=== PATIENT | female | born 1960 | race American Indian/Alaskan Native ===

== ENCOUNTER 2016-10-11 02:56 | Emergency (ER) | payer MEDICARE ==
[2016-10-11] MEDS ORDERED: ZOFRAN ODT PO ONE (03:48)
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
[2016-10-11] MEDS ORDERED: TORADOL IM ONE (09:12)
[2016-10-11 09:40] VITALS: BP 132/78
== END 2016-10-11 09:41 | disposition home or self-care (01) ==
LOC: ED 02:56
DX: M54.9 Dorsalgia, unspecified (principal)
CPT/HCPCS: 96372; 99282; J1885

== ENCOUNTER 2017-06-24 16:28 | Emergency (ER) | payer MEDICARE | END 2017-06-24 17:00 | disposition left against medical advice (07) | LOC: ED 16:28 | DX: Z53.21 Procedure and treatment not carried out due to patient leaving prior to being seen by health care provider (principal) ==

== ENCOUNTER 2018-07-18 10:10 | Outpatient (CLI) | payer MEDICARE ==
--- NOTE | 2018-07-18 13:43 | Fluoroscopy Report ---
FLUOROSCOPY BARIUM SWALLOW HISTORY: Dysphagia. COMPARISON: Upper GI series dated 10/25/12. FINDINGS: 91 fluoroscopic images were captured during this exam. Please note this exam was challenging because the patient refused to take in a large volume of the oral contrast. Deglutition appeared normal. No evidence for aspiration. A mildly obstructing cervical ring or web was identified near the level of C7. This appears to be mildly obstructing. After ingestion of the barium tablet, the tablet was stuck at the ring/web for a significant period of time before eventually passing. The patient experienced multiple episodes of gagging during this time. The thoracic esophagus appears normal caliber and mucosal pattern. Occasional tertiary contractions were identified suggesting mild esophagitis. A small sliding hiatal hernia was witnessed. Partial gastrectomy changes or gastric bypass changes are suspected. Please correlate with history. No reflux was witnessed during this exam. IMPRESSION: Cervical esophageal ring or web, mildly obstructing. See above. Mild esophagitis. Small hiatal hernia.
== END 2018-07-18 10:11 | disposition home or self-care (01) ==
LOC: FLUORO 10:10
PROVIDERS: ATTEND Nurse Practitioner
DX: K20.9 Esophagitis, unspecified (principal); K44.9 Diaphragmatic hernia without obstruction or gangrene; I10 Essential (primary) hypertension; J45.909 Unspecified asthma, uncomplicated; K21.9 Gastro-esophageal reflux disease without esophagitis; Z90.49 Acquired absence of other specified parts of digestive tract
CPT/HCPCS: 74220

== ENCOUNTER 2018-12-23 14:45 | Inpatient (IN) | payer MEDICARE ==
[2018-12-23] MEDS ORDERED: NACL 0.9% 500 ML 500 ML IV ONE (15:25)
--- NOTE | 2018-12-23 15:40 | Emergency Department Report ---
ED General Adult HPI - General Chief complaint: Altered Mental Status Stated complaint: POSSIBLE OD Time Seen by Provider: 12/23/18 15:21 Source: EMS Mode of arrival: Stretcher Limitations: Altered Mental Status - History of Present Illness Initial comments: 58 y.o. female with chronic pain disorder and asthma presents after family states that patient had a period of altered mental status. Family states the patient has a history of chronic pain in her back and knees and to pain medication. EMS stated that the pain medication looked to be old as the label was scratched off. Family stated that they believe the patient only took one of the tablets but they did not know the name of the tablet. Patient here is oriented to person place and time. Patient denies any shortness of breath. Patient denies any falls. patient denies any fever. Severity scale (0 -10): 0 - Related Data Home Medications Medication Instructions Recorded Confirmed Last Taken ALBUTEROL Inhaler (OR & NICU) 2 puff IH QID PRN 12/08/12 10/11/16 Unknown [ProAir HFA Inhaler] Gabapentin 600 mg PO TID 10/11/16 10/11/16 Unknown HYDROcodone/APAP 10-325 1 tab PO QID 10/11/16 10/11/16 Unknown NexIUM 40 mg PO DAILY 10/11/16 10/11/16 Unknown Roxicodone 15 mg PO QID 10/11/16 10/11/16 Unknown Previous Rx's Medication Instructions Recorded Last Taken Type OLANzapine ZYDIS [ZyPREXA Zydis] 2.5 mg PO Q8H PRN #15 tab.rapdis 10/19/15 Unknown Rx HYDROcodone/APAP 10-325 [[place] 1 each PO Q8HR PRN #10 tablet 10/11/16 Unknown Rx 10-325 mg TAB] Allergies Allergy/AdvReac Type Severity Reaction Status Date / Time morphine Allergy Itching Verified 12/08/12 09:37 ED Review of Systems ROS: Stated complaint: POSSIBLE OD Other details as noted in HPI Constitutional: denies: chills, fever Eyes: denies: eye pain, eye discharge, vision change ENT: denies: ear pain, throat pain Respiratory: denies: cough, shortness of breath, wheezing Cardiovascular: denies: chest pain, palpitations Endocrine: no symptoms reported Gastrointestinal: denies: abdominal pain, nausea, diarrhea Genitourinary: denies: urgency, dysuria, discharge Musculoskeletal: denies: back pain, joint swelling, arthralgia Skin: denies: rash, lesions Neurological: denies: headache, weakness, paresthesias Psychiatric: denies: anxiety, depression Hematological/Lymphatic: denies: easy bleeding, easy bruising ED Past Medical Hx - Past Medical History Previous Medical History?: Yes Hx Hypertension: Yes Hx GERD: Yes Hx Arthritis: Yes Hx Psychiatric Treatment: Yes (Depression) Hx Asthma: Yes Additional medical history: CHRONIC Pain, - Surgical History Past Surgical History?: Yes Hx Cholecystectomy: Yes - Social History Smoking Status: Never Smoker Substance Use Type: None - Medications Home Medications: Home Medications Medication Instructions Recorded Confirmed Last Taken Type ALBUTEROL Inhaler (OR & NICU) 2 puff IH QID PRN 12/08/12 10/11/16 Unknown History [ProAir HFA Inhaler] OLANzapine ZYDIS [ZyPREXA Zydis] 2.5 mg PO Q8H PRN #15 tab.rapdis 10/19/15 10/11/16 Unknown Rx Gabapentin 600 mg PO TID 10/11/16 10/11/16 Unknown History HYDROcodone/APAP 10-325 1 tab PO QID 10/11/16 10/11/16 Unknown History HYDROcodone/APAP 10-325 [[place] 1 each PO Q8HR PRN #10 tablet 10/11/16 Unknown Rx 10-325 mg TAB] NexIUM 40 mg PO DAILY 10/11/16 10/11/16 Unknown History Roxicodone 15 mg PO QID 10/11/16 10/11/16 Unknown History ED Physical Exam - General Limitations: Altered Mental Status General appearance: obese, other (awake; oriented to person place and time) - Head Head exam: Present: atraumatic, normocephalic - Eye Eye exam: Present: normal appearance - ENT ENT exam: Present: mucous membranes dry - Neck Neck exam: Present: normal inspection - Respiratory Respiratory exam: Present: normal lung sounds bilaterally. Absent: respiratory distress - Cardiovascular Cardiovascular Exam: Present: regular rate, normal rhythm. Absent: systolic murmur, diastolic murmur, rubs, gallop - GI/Abdominal GI/Abdominal exam: Present: soft, normal bowel sounds - Extremities Exam Extremities exam: Present: normal inspection - Back Exam Back exam: Present: normal inspection - Neurological Exam Neurological exam: Present: alert, oriented X3, CN II-XII intact. Absent: motor sensory deficit - Psychiatric Psychiatric exam: Present: normal affect, normal mood - Skin Skin exam: Present: warm, dry, intact, normal color. Absent: rash ED Course Vital Signs 12/23/18 12/23/18 12/23/18 15:10 15:30 16:01 Temperature 98.3 F Pulse Rate 104 H 104 H Respiratory 12 9 L Rate Blood Pressure 137/79 103/62 103/62 Blood Pressure 137/79 [Left] O2 Sat by Pulse 93 77 L 97 Oximetry 12/23/18 12/23/18 12/23/18 16:31 17:01 17:31 Temperature Pulse Rate 102 H 97 H 99 H Respiratory 13 10 L 8 L Rate Blood Pressure 103/62 103/62 103/62 Blood Pressure [Left] O2 Sat by Pulse 94 77 L 76 L Oximetry 12/23/18 12/23/18 12/23/18 17:56 18:00 18:31 Temperature Pulse Rate 88 99 H 96 H Respiratory 9 L 12 9 L Rate Blood Pressure 177/95 121/80 Blood Pressure 111/70 [Left] O2 Sat by Pulse 95 95 93 Oximetry 12/23/18 19:00 Temperature Pulse Rate 98 H Respiratory 10 L Rate Blood Pressure 116/67 Blood Pressure [Left] O2 Sat by Pulse 91 Oximetry ED Medical Decision Making - Lab Data Result diagrams: 12/23/18 16:49 12/23/18 16:49 - EKG Data EKG shows normal: sinus rhythm Rate: normal - EKG Data When compared to previous EKG there are: no significant change Interpretation: no acute changes - Medical Decision Making Patient noted to have hypoxia upon ambulation desaturating to the mid 70s when an attempt was made in the ER. Patient was given albuterol therapy. Patient noted to be hypoxic on room air. ABG was performed on [address] a [address] shows no acute pathology. Patient to be admitted to the hospitalist service for continued management and treatment. Patient is currently oriented to person place and time. - Differential Diagnosis Intracranial Hemorrhage; COPD exacerbation; Electrolyte Abnormality Critical care attestation.: If time is entered above; I have spent that time in minutes in the direct care of this critically ill patient, excluding procedure time. ED Disposition Clinical Impression: COPD with exacerbation, Altered mental status Disposition: DC-09 OP ADMIT IP TO THIS HOSP Is pt being admited?: Yes Does the pt Need Aspirin: No Condition: Stable Instructions: Chronic Obstructive Pulmonary Disease (ED) Referrals: PRIMARY CARE, [Primary Care Provider] - 3-5 Days Time of Disposition: 20:58 Print Language: CZECH
--- NOTE | 2018-12-23 16:17 | XRay Report ---
CHEST 1 VIEW INDICATION / CLINICAL INFORMATION: chest pain. COMPARISON: None available. FINDINGS: SUPPORT DEVICES: None. HEART / MEDIASTINUM: No significant abnormality. LUNGS / PLEURA: No significant pulmonary or pleural abnormality.. No pneumothorax. ADDITIONAL FINDINGS: No significant additional findings. IMPRESSION: 1. No acute findings. Signer Name: Chris Lopez MD Signed: 12/23/2018 4:12 PM Workstation Name: [id number]
--- NOTE | 2018-12-23 16:25 | Cat Scan Report ---
CT head/brain wo con INDICATION / CLINICAL INFORMATION: 58 years Female; altered mental status. TECHNIQUE: Routine CT head without contrast. All CT scans at this location are performed using CT dos e reduction for ALARA by means of automated exposure control. COMPARISON: 10/15/2015 FINDINGS: BRAIN / INTRACRANIAL CONTENTS: No acute hemorrhage, mass effect, midline shift, hydrocephalus, or acu te, large territorial infarct. No chronic infarct or focal atrophy. Normal brain volume and ventricul ar/sulcal size for age. No significant white matter abnormality. CRANIOCERVICAL JUNCTION: No significant abnormality. ORBITS: No significant abnormality of visualized orbits. SINUSES / MASTOIDS: No significant abnormality the visualized paranasal sinuses or mastoid air cells. ADDITIONAL FINDINGS: None. IMPRESSION: 1. No focal mass, hemorrhage, hydrocephalus, or acute, large territorial infarct. Signer Name: Santino Schwartz MD, III Signed: 12/23/2018 4:20 PM Workstation Name: [id number]
[2018-12-23 17:07] LABS: Hematocrit 33.4 % (30.3-42.9); Hemoglobin 10.9 gm/dl (10.1-14.3); Mean Corpuscular HGB Conc 33 % (30-34); Mean Corpuscular Volume 80 fl (79-97); Platelet Count 288 K/mm3 (140-440); Red Blood Count 4.15 M/mm3 (3.65-5.03); Red Cell Distribution Width 15.7 % (13.2-15.2)
[2018-12-23 17:37] LABS: Alanine Aminotransferase 13 units/L (7-56); BUN/Creatinine Ratio 17; Blood Urea Nitrogen 26 mg/dL (7-17); Calcium 9.1 mg/dL (8.4-10.2); Hemolysis Index 2
[2018-12-23] MEDS ORDERED: PERCOCET 5/325 PO ONE (19:52)
[2018-12-23] MEDS ORDERED: SOLU-Medrol IV ONE (19:59)
[2018-12-23] MEDS ORDERED: PROVENTIL IH ONE (19:59)
[2018-12-23] MEDS ORDERED: MAGNESIUM SULFATE 2GM/50ML 2 GM/50 ML BAG IV ONE (20:00)
[2018-12-23] MEDS ORDERED: SODIUM CHLORIDE FLUSH SYRINGE 10 ML IV PRN (20:19)
[2018-12-23] MEDS ORDERED: TYLENOL PO PRN (20:19)
[2018-12-23] MEDS ORDERED: ZOFRAN IV PRN (20:19)
--- NOTE | 2018-12-23 20:54 | History and Physical Report ---
<PEEWEE RODRIGUEZ - Last Filed: 12/23/18 22:41> History of Present Illness Date of examination: 12/23/18 Date of admission: 12/23/18 Chief complaint: SOB, Wheezing History of present illness: Pt is a 58 year old female with PMHx of asthma, HTN, HDL, arthritis, Gerd, depression, obesity, legs, back injuries and multiple surgeries and chronic pain syndrome who was brought to the hospital for AMS. According to pt's son in room, the pt had an episode of change in mental status and near syncope, the episode was witness by one of her son who called EMS. Pt states that she has been coughing and wheezing for a few days at home, she reports that she also had difficulty swallowing and severe dry mouth. Pt denies fever, denies chills, darius es recent travelling, denies ill-contact, denies hemoptisis, denies SOB, denies deziness, denies nausea, denies vomiting. In the ER pt was started on nebulizer treatment with improved of her SOB, she had a chest x-ray which was negative and a CT was order to r/o PE, result pending, she is admitted for asthma exacerbation. Past History Past Medical History: arthritis, GERD, hypertension, hyperlipidemia, other (asthma, depression, ) Past Surgical History: Other (foot/leg surgeries) Social history: no significant social history Family history: no significant family history Medications and Allergies Allergies Allergy/AdvReac Type Severity Reaction Status Date / Time morphine Allergy Itching Verified 12/08/12 09:37 Home Medications Medication Instructions Recorded Confirmed Last Taken Type ALBUTEROL Inhaler (OR & NICU) 2 puff IH QID PRN 12/08/12 10/11/16 Unknown History [ProAir HFA Inhaler] OLANzapine ZYDIS [ZyPREXA Zydis] 2.5 mg PO Q8H PRN #15 tab.rapdis 10/19/15 10/11/16 Unknown Rx Gabapentin 600 mg PO TID 10/11/16 10/11/16 Unknown History HYDROcodone/APAP 10-325 1 tab PO QID 10/11/16 10/11/16 Unknown History HYDROcodone/APAP 10-325 [[place] 1 each PO Q8HR PRN #10 tablet 10/11/16 Unknown Rx 10-325 mg TAB] NexIUM 40 mg PO DAILY 10/11/16 10/11/16 Unknown History Roxicodone 15 mg PO QID 10/11/16 10/11/16 Unknown History Active Meds: Active Medications Acetaminophen (Tylenol) 650 mg PO Q4H PRN PRN Reason: Pain MILD(1-3)/Fever >100.5/RODRIGUEZ Albuterol/Ipratropium (Duoneb *Not For Prn Use*) 1 ampul IH Q6HRT [facility] Budesonide (Pulmicort) 0.5 mg IH Q12HRT [facility] Famotidine (Pepcid) 10 mg IV BID [facility] Sodium Chloride (Nacl 0.9% 1000 Ml) 1,000 mls @ 75 mls/hr IV DIRECT [facility] Methylprednisolone Sodium Succinate (Solu-Medrol) 80 mg IV Q8H [facility] Montelukast Sodium (Singulair) 10 mg PO QHS [facility] Ondansetron HCl (Zofran) 4 mg IV Q8H PRN PRN Reason: Nausea And Vomiting Sodium Chloride (Sodium Chloride Flush Syringe 10 Ml) 10 ml IV BID [facility] Sodium Chloride (Sodium Chloride Flush Syringe 10 Ml) 10 ml IV PRN PRN PRN Reason: LINE FLUSH Review of Systems Respiratory: cough, shortness of breath, dyspnea on exertion Exam - Constitutional Vitals: Temp Pulse Resp BP Pulse Ox 98.3 F 98 H 10 L 116/67 91 12/23/18 15:10 12/23/18 19:00 12/23/18 19:00 12/23/18 19:00 12/23/18 19:00 General appearance: Present: mild distress - EENT Eyes: Present: EOM intact ENT: hearing intact - Neck Neck: Present: normal ROM - Respiratory Respiratory: bilateral: rhonchi, wheezing - Cardiovascular Heart Sounds: Present: S1 & S2 - Extremities Extremities: no ischemia, No edema Peripheral Pulses: within normal limits - Abdominal General gastrointestinal: Present: non-tender, non-distended, other (obese) Female genitourinary: Present: deferred - Rectal Rectal Exam: deferred - Integumentary Integumentary: Present: warm - Musculoskeletal Musculoskeletal: strength equal bilaterally - Psychiatric Psychiatric: cooperative - Neurologic Neurologic: moves all extremities Results - Labs CBC & Chem 7: 12/23/18 16:49 12/23/18 16:49 Labs: Laboratory Last Values WBC 10.1 K/mm3 (4.5-11.0) 12/23/18 16:49 RBC 4.15 M/mm3 (3.65-5.03) 12/23/18 16:49 Hgb 10.9 gm/dl (10.1-14.3) 12/23/18 16:49 Hct 33.4 % (30.3-42.9) 12/23/18 16:49 MCV 80 fl (79-97) 12/23/18 16:49 MCH 26 pg (28-32) L 12/23/18 16:49 MCHC 33 % (30-34) 12/23/18 16:49 RDW 15.7 % (13.2-15.2) H 12/23/18 16:49 Plt Count 288 K/mm3 (140-440) 12/23/18 16:49 POC ABG pH 7.376 (7.35-7.45) 12/23/18 18:06 POC ABG pCO2 50.9 (35-45) H 12/23/18 18:06 POC ABG pO2 71 (80-105) L 12/23/18 18:06 POC ABG HCO3 29.9 (22-26 mml/L) 12/23/18 18:06 POC ABG Total CO2 31 (23-27mmol/L) 12/23/18 18:06 POC ABG O2 Sat 93 12/23/18 18:06 POC ABG Base Excess 5 ((-2) - (+3)mmol/L) 12/23/18 18:06 FiO2 32 % 12/23/18 18:06 Sodium 138 mmol/L (137-145) 12/23/18 16:49 Potassium 4.3 mmol/L (3.6-5.0) 12/23/18 16:49 Chloride 97.8 mmol/L (98-107) L 12/23/18 16:49 Carbon Dioxide 24 mmol/L (22-30) 12/23/18 16:49 Anion Gap 21 mmol/L 12/23/18 16:49 BUN 26 mg/dL (7-17) H 12/23/18 16:49 Creatinine 1.5 mg/dL (0.7-1.2) H 12/23/18 16:49 Estimated GFR 43 ml/min 12/23/18 16:49 BUN/Creatinine Ratio 17 % 12/23/18 16:49 Glucose 134 mg/dL (65-100) H 12/23/18 16:49 Calcium 9.1 mg/dL (8.4-10.2) 12/23/18 16:49 Total Bilirubin 0.30 mg/dL (0.1-1.2) 12/23/18 16:49 AST 25 units/L (5-40) 12/23/18 16:49 ALT 13 units/L (7-56) 12/23/18 16:49 Alkaline Phosphatase 159 units/L (35-129) H 12/23/18 16:49 Total Creatine Kinase 91 units/L (30-135) 12/23/18 16:49 Troponin T < 0.010 ng/mL (0.00-0.029) 12/23/18 16:49 Total Protein 8.0 g/dL (6.3-8.2) 12/23/18 16:49 Albumin 4.0 g/dL (3.9-5) 12/23/18 16:49 Albumin/Globulin Ratio 1.0 % 12/23/18 16:49 Salicylates < 0.3 mg/dL (2.8-20.0) L 12/23/18 16:49 Acetaminophen < 5.0 ug/mL (10.0-30.0) L 12/23/18 16:49 Plasma/Serum Alcohol < 0.01 % (0-0.07) 12/23/18 16:49 Assessment and Plan Assessment and plan: 1. Asthma with acute exacerbation 2. H/o HTN 3. HDL 4. Arthritis 5. GERD 6. H/o Depression 7. Obesity 8. H/o multiple surgeries 9. Chronic pain syndrome 10. Dysphagia Plan: Pt is admitted to [facility] for acute asthma Continue nebs treatment q6hr and PRN Solumedrol q8hrs Cough supressant Resume home meds continue to monitor respiratory sx F/u outpt with GI for dysphagia sx Advance Directives: Yes VTE prophylaxis?: Chemical Plan of care discussed with patient/family: Yes <CHRISTINA CASAS - Last Filed: 12/24/18 00:09> History of Present Illness Date of admission: 12/23/18 20:19 Medications and Allergies Active Meds: Active Medications Acetaminophen (Tylenol) 650 mg PO Q4H PRN PRN Reason: Pain MILD(1-3)/Fever >100.5/RODRIGUEZ Acetaminophen/Hydrocodone Bitart ([place] 10/325) 1 each PO QID PRN PRN Reason: Pain, Moderate (4-6) Albuterol/Ipratropium (Duoneb *Not For Prn Use*) 1 ampul IH Q6HRT [facility] Last Admin: 12/23/18 23:28 Dose: Not Given Documented by: Benzonatate (Tessalon Perles) 200 mg PO Q8H [facility] Budesonide (Pulmicort) 0.5 mg IH Q12HRT [facility] Last Admin: 12/23/18 21:22 Dose: 0.5 mg Documented by: Famotidine (Pepcid) 10 mg IV BID [facility] Last Admin: 12/23/18 22:41 Dose: 10 mg Documented by: Gabapentin (Neurontin) 600 mg PO TID [facility] Sodium Chloride (Nacl 0.9% 1000 Ml) 1,000 mls @ 75 mls/hr IV DIRECT [facility] Last Admin: 12/23/18 22:42 Dose: 75 mls/hr Documented by: Montelukast Sodium (Singulair) 10 mg PO QHS [facility] Last Admin: 12/23/18 22:41 Dose: 10 mg Documented by: Olanzapine (Zyprexa) 2.5 mg PO Q8H PRN PRN Reason: Agitation Ondansetron HCl (Zofran) 4 mg IV Q8H PRN PRN Reason: Nausea And Vomiting Oxycodone HCl (Roxicodone) 15 mg PO QID PRN PRN Reason: Pain, (7-10) Sodium Chloride (Sodium Chloride Flush Syringe 10 Ml) 10 ml IV BID [facility] Last Admin: 12/23/18 22:41 Dose: 10 ml Documented by: Sodium Chloride (Sodium Chloride Flush Syringe 10 Ml) 10 ml IV PRN PRN PRN Reason: LINE FLUSH Exam - Constitutional Vitals: Temp Pulse Resp BP Pulse Ox 98.3 F 77 20 100/73 99 12/23/18 15:10 12/23/18 21:00 12/23/18 23:22 12/23/18 20:49 12/23/18 20:49 Results - Labs CBC & Chem 7: 10/18/19 16:49 12/23/18 16:49 Labs: Laboratory Last Values WBC 10.1 K/mm3 (4.5-11.0) 12/23/18 16:49 RBC 4.15 M/mm3 (3.65-5.03) 12/23/18 16:49 Hgb 10.9 gm/dl (10.1-14.3) 12/23/18 16:49 Hct 33.4 % (30.3-42.9) 12/23/18 16:49 MCV 80 fl (79-97) 12/23/18 16:49 MCH 26 pg (28-32) L 12/23/18 16:49 MCHC 33 % (30-34) 12/23/18 16:49 RDW 15.7 % (13.2-15.2) H 12/23/18 16:49 Plt Count 288 K/mm3 (140-440) 12/23/18 16:49 POC ABG pH 7.376 (7.35-7.45) 12/23/18 18:06 POC ABG pCO2 50.9 (35-45) H 12/23/18 18:06 POC ABG pO2 71 (80-105) L 12/23/18 18:06 POC ABG HCO3 29.9 (22-26 mml/L) 12/23/18 18:06 POC ABG Total CO2 31 (23-27mmol/L) 12/23/18 18:06 POC ABG O2 Sat 93 12/23/18 18:06 POC ABG Base Excess 5 ((-2) - (+3)mmol/L) 12/23/18 18:06 FiO2 32 % 12/23/18 18:06 Sodium 138 mmol/L (137-145) 12/23/18 16:49 Potassium 4.3 mmol/L (3.6-5.0) 12/23/18 16:49 Chloride 97.8 mmol/L (98-107) L 12/23/18 16:49 Carbon Dioxide 24 mmol/L (22-30) 12/23/18 16:49 Anion Gap 21 mmol/L 12/23/18 16:49 BUN 26 mg/dL (7-17) H 12/23/18 16:49 Creatinine 1.5 mg/dL (0.7-1.2) H 12/23/18 16:49 Estimated GFR 43 ml/min 12/23/18 16:49 BUN/Creatinine Ratio 17 % 12/23/18 16:49 Glucose 134 mg/dL (65-100) H 12/23/18 16:49 Calcium 9.1 mg/dL (8.4-10.2) 12/23/18 16:49 Total Bilirubin 0.30 mg/dL (0.1-1.2) 12/23/18 16:49 AST 25 units/L (5-40) 12/23/18 16:49 ALT 13 units/L (7-56) 12/23/18 16:49 Alkaline Phosphatase 159 units/L (35-129) H 12/23/18 16:49 Total Creatine Kinase 91 units/L (30-135) 12/23/18 16:49 Troponin T < 0.010 ng/mL (0.00-0.029) 12/23/18 16:49 Total Protein 8.0 g/dL (6.3-8.2) 12/23/18 16:49 Albumin 4.0 g/dL (3.9-5) 12/23/18 16:49 Albumin/Globulin Ratio 1.0 % 12/23/18 16:49 Salicylates < 0.3 mg/dL (2.8-20.0) L 12/23/18 16:49 Acetaminophen < 5.0 ug/mL (10.0-30.0) L 12/23/18 16:49 Plasma/Serum Alcohol < 0.01 % (0-0.07) 12/23/18 16:49 Assessment and Plan Assessment and plan: 58-year-old woman with a history of hypertension, GERD, depression, asthma, depression, chronic pain comes emergency room with complaints of multiple episodes of nausea vomiting's 2 days. She has a history of dysphagia, status post dilation of the esophagus 2 weeks ago. Also complain of abdominal pain Check CT abdomen, consult GI
[2018-12-23] MEDS ORDERED: SOLU-Medrol ONE (21:08)
[2018-12-23] MEDS: PULMICORT IH SCH (21:22)
[2018-12-23] MEDS ORDERED: SOLU-Medrol IV SCH (22:00)
[2018-12-23] MEDS: SODIUM CHLORIDE FLUSH SYRINGE 10 ML IV SCH (22:41)
[2018-12-23] MEDS: SINGULAIR PO SCH (22:41)
[2018-12-23] MEDS: PEPCID IV SCH (22:41)
[2018-12-23] MEDS: NACL 0.9% 1000 ML 1,000 ML IV SCH (22:42)
[2018-12-23] MEDS: DUONEB *Not for PRN Use IH SCH (23:28)
[2018-12-24] MEDS: ROXICODONE PO PRN ×5 (00:35→22:16)
[2018-12-24] MEDS: TESSALON PERLES PO SCH ×3 (00:36→17:23)
[2018-12-24 01:25] LABS: Bacteria,Urine 2+ /HPF (Negative); Bilirubin,Urine NEG (Negative); Blood,Urine NEG (Negative); Color,Urine Yellow (Yellow); Mucus,Urine FEW /HPF
[2018-12-24] MEDS: DUONEB *Not for PRN Use IH SCH ×4 (01:57→20:07)
--- NOTE | 2018-12-24 03:23 | Cat Scan Report ---
CT ABDOMEN AND PELVIS WITHOUT CONTRAST INDICATION / CLINICAL INFORMATION: abd pain. Abdominal pain TECHNIQUE: Axial CT images were obtained through the abdomen and pelvis without IV contrast. All CT scans at [facility] location are performed using CT dose reduction for ALARA by means of automated exposure control. COMPARISON: None available. FINDINGS: LOWER CHEST: No significant abnormality. LIVER: No significant abnormality. GALLBLADDER: Removed. BILE DUCTS: No significant abnormality. PANCREAS: No significant abnormality. SPLEEN: No significant abnormality. ADRENALS: No significant abnormality. RIGHT KIDNEY and URETER: No significant abnormality. LEFT KIDNEY and URETER: Nonobstructive nephrolithiasis. STOMACH and SMALL BOWEL: Small hiatal hernia. Prior gastric bypass COLON: No significant abnormality. APPENDIX: No significant abnormality. PERITONEUM: No free fluid. No free air. No fluid collection. LYMPH NODES: No significant adenopathy. AORTA and ARTERIES: No significant abnormality. IVC and VEINS: No significant abnormality. URINARY BLADDER: No significant abnormality. REPRODUCTIVE ORGANS: No significant abnormality. ADDITIONAL FINDINGS: None. SKELETAL SYSTEM: No significant abnormality. IMPRESSION: 1. No significant abnormality. Multiple incidental findings as noted above. Signer Name: Abebe Nagel MD Signed: 12/24/2018 3:19 AM Workstation Name: [id number]
[2018-12-24] MEDS: PULMICORT IH SCH ×2 (07:59→20:07)
[2018-12-24] MEDS: PEPCID IV SCH ×2 (09:02→21:52)
[2018-12-24] MEDS: NEURONTIN PO SCH ×3 (09:02→21:52)
[2018-12-24] MEDS: SODIUM CHLORIDE FLUSH SYRINGE 10 ML IV SCH ×2 (09:03→21:54)
[2018-12-24] MEDS ORDERED: PROTONIX PO SCH (10:00)
[2018-12-24] MEDS ORDERED: NORCO 10/325 PO PRN (10:00)
[2018-12-24] MEDS ORDERED: ROXICODONE PO PRN (10:00)
[2018-12-24] MEDS ORDERED: PNEUMOVAX 23 IM ONE (12:00)
[2018-12-24] MEDS ORDERED: AFLURIA QUAD 2019-2020 (3YR UP) IM ONE (12:00)
--- NOTE | 2018-12-24 12:44 | Progress Note ---
Assessment and Plan Assessment and plan: Acute asthma exacerbation. Continue bronchodilators/nebulizers. Continue systemic steroids. Continue Singulair. Hypertension. Continue antihypertensive medications. Hyperlipidemia. Continue statins. GERD. Continue PPI. Peripheral neuropathy. Continue gabapentin History of depression. Obesity. Chronic pain syndrome. History Interval history: No new issues overnight. Hospitalist Physical - Constitutional Vitals: Temp Pulse Resp BP Pulse Ox 98.7 F 84 18 140/69 92 12/24/18 12:02 12/24/18 12:02 12/24/18 12:02 12/24/18 12:02 12/24/18 12:02 General appearance: Present: no acute distress - EENT Eyes: Present: PERRL, EOM intact ENT: hearing intact, clear oral mucosa, dentition normal - Neck Neck: Present: supple, normal ROM - Respiratory Respiratory effort: normal Respiratory: bilateral: CTA - Cardiovascular Rhythm: regular Heart Sounds: Present: S1 & S2. Absent: gallop, rub - Extremities Extremities: no ischemia, No edema, Full ROM - Abdominal General gastrointestinal: soft, non-tender, non-distended, normal bowel sounds - Integumentary Integumentary: Present: clear, warm, dry - Neurologic Neurologic: CNII-XII intact, moves all extremities Results - Labs CBC & Chem 7: 12/23/18 16:49 12/23/18 16:49 Labs: Laboratory Last Values WBC 10.1 K/mm3 (4.5-11.0) 12/23/18 16:49 RBC 4.15 M/mm3 (3.65-5.03) 12/23/18 16:49 Hgb 10.9 gm/dl (10.1-14.3) 12/23/18 16:49 Hct 33.4 % (30.3-42.9) 12/23/18 16:49 MCV 80 fl (79-97) 12/23/18 16:49 MCH 26 pg (28-32) L 12/23/18 16:49 MCHC 33 % (30-34) 12/23/18 16:49 RDW 15.7 % (13.2-15.2) H 12/23/18 16:49 Plt Count 288 K/mm3 (140-440) 12/23/18 16:49 POC ABG pH 7.376 (7.35-7.45) 12/23/18 18:06 POC ABG pCO2 50.9 (35-45) H 12/23/18 18:06 POC ABG pO2 71 (80-105) L 12/23/18 18:06 POC ABG HCO3 29.9 (22-26 mml/L) 12/23/18 18:06 POC ABG Total CO2 31 (23-27mmol/L) 12/23/18 18:06 POC ABG O2 Sat 93 12/23/18 18:06 POC ABG Base Excess 5 ((-2) - (+3)mmol/L) 12/23/18 18:06 FiO2 32 % 12/23/18 18:06 Sodium 138 mmol/L (137-145) 12/23/18 16:49 Potassium 4.3 mmol/L (3.6-5.0) 12/23/18 16:49 Chloride 97.8 mmol/L (98-107) L 12/23/18 16:49 Carbon Dioxide 24 mmol/L (22-30) 12/23/18 16:49 Anion Gap 21 mmol/L 12/23/18 16:49 BUN 26 mg/dL (7-17) H 12/23/18 16:49 Creatinine 1.5 mg/dL (0.7-1.2) H 12/23/18 16:49 Estimated GFR 43 ml/min 12/23/18 16:49 BUN/Creatinine Ratio 17 % 12/23/18 16:49 Glucose 134 mg/dL (65-100) H 12/23/18 16:49 Calcium 9.1 mg/dL (8.4-10.2) 12/23/18 16:49 Total Bilirubin 0.30 mg/dL (0.1-1.2) 12/23/18 16:49 AST 25 units/L (5-40) 12/23/18 16:49 ALT 13 units/L (7-56) 12/23/18 16:49 Alkaline Phosphatase 159 units/L (35-129) H 12/23/18 16:49 Total Creatine Kinase 91 units/L (30-135) 12/23/18 16:49 Troponin T < 0.010 ng/mL (0.00-0.029) 12/23/18 16:49 Total Protein 8.0 g/dL (6.3-8.2) 12/23/18 16:49 Albumin 4.0 g/dL (3.9-5) 12/23/18 16:49 Albumin/Globulin Ratio 1.0 % 12/23/18 16:49 Urine Color Yellow (Yellow) 12/24/18 01:00 Urine Turbidity Slightly-cloudy (Clear) 12/24/18 01:00 Urine pH 5.0 (5.0-7.0) 12/24/18 01:00 Ur Specific [place] 1.024 (1.003-1.030) 12/24/18 01:00 Urine Protein 30 mg/dl mg/dL (Negative) 12/24/18 01:00 Urine Glucose (UA) Neg mg/dL (Negative) 12/24/18 01:00 Urine Ketones Neg mg/dL (Negative) 12/24/18 01:00 Urine Blood Neg (Negative) 12/24/18 01:00 Urine Nitrite Neg (Negative) 12/24/18 01:00 Urine Bilirubin Neg (Negative) 12/24/18 01:00 Urine Urobilinogen 2.0 mg/dL (<2.0) 12/24/18 01:00 Ur Leukocyte Esterase Neg (Negative) 12/24/18 01:00 Urine WBC (Auto) 4.0 /HPF (0.0-6.0) 12/24/18 01:00 Urine RBC (Auto) 2.0 /HPF (0.0-6.0) 12/24/18 01:00 U Epithel Cells (Auto) 1.0 /HPF (0-13.0) 12/24/18 01:00 Urine Bacteria (Auto) 2+ /HPF (Negative) 12/24/18 01:00 Urine Mucus Few /HPF 12/24/18 01:00 Salicylates < 0.3 mg/dL (2.8-20.0) L 12/23/18 16:49 Acetaminophen < 5.0 ug/mL (10.0-30.0) L 12/23/18 16:49 Plasma/Serum Alcohol < 0.01 % (0-0.07) 12/23/18 16:49 Active Medications - Current Medications Current Medications: Generic Name Dose Route Start Last Admin Trade Name Freq PRN Reason Stop Dose Admin Acetaminophen 650 mg 12/23/18 20:19 Tylenol PO Q4H PRN Pain MILD(1-3)/Fever >100.5/RODRIGUEZ Acetaminophen/Hydrocodone Bitart 1 each 12/24/18 10:00 [place] 10/325 PO QID PRN Pain, Moderate (4-6) Albuterol/Ipratropium 1 ampul 12/24/18 08:00 12/24/18 07:59 Duoneb *Not For Prn Use* IH 1 ampul TIDRT GALINA Administration Benzonatate 200 mg 12/24/18 00:00 12/24/18 09:01 Tessalon Perles PO 200 mg Q8H GALINA Administration Budesonide 0.5 mg 12/23/18 20:30 12/24/18 07:59 Pulmicort IH 0.5 mg Q12HRT GALINA Administration Famotidine 10 mg 12/23/18 22:00 12/24/18 09:02 Pepcid IV 10 mg BID GALINA Administration Gabapentin 600 mg 12/24/18 08:00 12/24/18 09:02 Neurontin PO 600 mg TID GALINA Administration Sodium Chloride 1,000 mls @ 75 mls/hr 12/23/18 21:00 12/23/18 22:42 Nacl 0.9% 1000 Ml IV 75 mls/hr DIRECT GALINA Administration Montelukast Sodium 10 mg 12/23/18 22:00 12/23/18 22:41 Singulair PO 10 mg QHS GALINA Administration Olanzapine 2.5 mg 12/23/18 23:01 12/24/18 03:01 Zyprexa PO 2.5 mg Q8H PRN Administration Agitation Ondansetron HCl 4 mg 12/23/18 20:19 12/24/18 00:41 Zofran IV 4 mg Q8H PRN Administration Nausea And Vomiting Oxycodone HCl 15 mg 12/24/18 00:20 12/24/18 06:48 Roxicodone PO 15 mg QID PRN Administration Pain, (7-10) Sodium Chloride 10 ml 12/23/18 22:00 12/24/18 09:03 Sodium Chloride Flush Syringe 10 Ml IV 10 ml BID GALINA Administration Sodium Chloride 10 ml 12/23/18 20:19 Sodium Chloride Flush Syringe 10 Ml IV PRN PRN LINE FLUSH
[2018-12-24] MEDS: ROCEPHIN/NS 1 GM/50 ML 1 GM/50 ML BAG IV SCH (13:40)
[2018-12-24] MEDS: NACL 0.9% 1000 ML 1,000 ML IV SCH (18:21)
[2018-12-24] MEDS: SOLU-Medrol IV SCH (21:52)
[2018-12-24] MEDS: SINGULAIR PO SCH (21:52)
[2018-12-25] MEDS: TESSALON PERLES PO SCH ×2 (01:09→08:00)
[2018-12-25] MEDS: ROXICODONE PO PRN ×2 (06:22→11:20)
[2018-12-25] MEDS: NEURONTIN PO SCH (08:10)
[2018-12-25] MEDS: DUONEB *Not for PRN Use IH SCH (08:11)
[2018-12-25] MEDS: PULMICORT IH SCH (08:11)
[2018-12-25] MEDS: PEPCID IV SCH (10:04)
[2018-12-25] MEDS: SODIUM CHLORIDE FLUSH SYRINGE 10 ML IV SCH (10:04)
[2018-12-25] MEDS: ROCEPHIN/NS 1 GM/50 ML 1 GM/50 ML BAG IV SCH (10:04)
[2018-12-25] MEDS: SOLU-Medrol IV SCH (10:05)
--- NOTE | 2018-12-25 10:20 | Discharge Summary ---
Providers - Providers Date of Admission: 12/23/18 20:19 Date of discharge: 12/25/18 Attending physician: THIEN HATCH 12/24/18 00:10 Consult to Physician [CONS] Routine Comment: Consulting Provider: WILLI BARBA Physician Instructions: Reason For Exam: n/v Primary care physician: [employer] Hospitalization Reason for admission: asthma exac Condition: Stable Hospital course: 58-year-old female presented through the emergency department with diagnosis of acute asthma exacerbation and acute bronchitis. She was treated with bronchodilators/nebulizers and systemic steroids and Solu-Medrol every 8 hours. Patient also received IV antibiotics of Rocephin and had significant improvement. Patient returned back to her baseline respiratory status. Patient is felt to have received maximal hospital benefit and will be discharged home. Dedicated discharge time 32 minutes. Disposition: [id number] TO HOME OR SELFCARE Time spent for discharge: 32 - Discharge Diagnoses (1) Asthma exacerbation Status: Acute (2) Acute bronchitis Status: Acute Core Measure Documentation - Palliative Care Palliative Care/ Comfort Measures: Not Applicable - Core Measures Any of the following diagnoses?: none Exam - Constitutional Vitals: Temp Pulse Resp BP Pulse Ox 98.2 F 71 18 130/65 98 12/25/18 07:44 12/25/18 08:11 12/25/18 08:26 12/25/18 07:44 12/25/18 08:26 General appearance: Present: no acute distress, well-nourished - EENT Eyes: Present: PERRL ENT: hearing intact, clear oral mucosa - Neck Neck: Present: supple, normal ROM - Respiratory Respiratory effort: normal Respiratory: bilateral: CTA - Cardiovascular Heart Sounds: Present: S1 & S2. Absent: rub, click - Extremities Extremities: pulses symmetrical, No edema Peripheral Pulses: within normal limits - Abdominal General gastrointestinal: Present: soft, non-tender, non-distended, normal bowel sounds Female genitourinary: Present: normal - Integumentary Integumentary: Present: clear, warm, dry - Musculoskeletal Musculoskeletal: gait normal, strength equal bilaterally - Psychiatric Psychiatric: appropriate mood/affect, intact judgment & insight - Neurologic Neurologic: CNII-XII intact, moves all extremities Plan Activity: advance as tolerated Weight Bearing Status: Weight Bear as Tolerated Diet: regular Follow up with: PRIMARY CARE, [Primary Care Provider] - 3-5 Days Prescriptions: cefUROXime [Ceftin] 500 mg PO Q12H #14 tablet Gabapentin 600 mg PO TID #90 methylPREDNISolone [Medrol 4MG DOSEPAK (21 tabs)] 4 mg PO QAM #1 tab.ds.pk HYDROcodone/APAP 10-325 [[place] 10-325 mg TAB] 1 each PO QID PRN #6 tablet PRN Reason: Pain, Moderate (4-6) Budesonide [Pulmicort Respules] 0.5 mg IH Q12HRT 30 Days nebu Roxicodone 15 mg PO QID #8 Montelukast [Singulair] 10 mg PO QHS #30 tablet Benzonatate [Tessalon Perles] 200 mg PO Q8H #20 capsule Ondansetron (Nf) [Zofran TAB] 4 mg PO Q8HR PRN #30 tablet PRN Reason: Nausea And Vomiting
[2018-12-25 11:25] VITALS: BP 126/62
== END 2018-12-25 13:10 | disposition home or self-care (01) | DRG 202 ==
LOC: ED 14:45 → 4A 20:19
PROVIDERS: ADMIT Internal Medicine; ATTEND Hospitalist
PROC: 4A033R1 Measurement of Arterial Saturation, Peripheral, Percutaneous Approach (ICD-10-PCS; principal; 2018-12-23)
PROC: 3E0234Z Introduction of Serum, Toxoid and Vaccine into Muscle, Percutaneous Approach (ICD-10-PCS; 2018-12-24)
DX: J45.901 Unspecified asthma with (acute) exacerbation (principal); J44.1 Chronic obstructive pulmonary disease with (acute) exacerbation; J44.0 Chronic obstructive pulmonary disease with (acute) lower respiratory infection; I10 Essential (primary) hypertension; K21.9 Gastro-esophageal reflux disease without esophagitis; J20.9 Acute bronchitis, unspecified; E78.5 Hyperlipidemia, unspecified; G62.9 Polyneuropathy, unspecified; F32.9 Major depressive disorder, single episode, unspecified; E66.9 Obesity, unspecified; G89.4 Chronic pain syndrome; R13.10 Dysphagia, unspecified; M19.90 Unspecified osteoarthritis, unspecified site; Z88.5 Allergy status to narcotic agent; Z79.899 Other long term (current) drug therapy; Z90.49 Acquired absence of other specified parts of digestive tract; Z23 Encounter for immunization
CPT/HCPCS: 36415; 70450; 71045; 74176; 80053; 80320; 81001; 82550; 82803; 84484; 85027; 87116; 90686; 90732; 93005; 93010; 94640; 94644; 96361; 96365; 96366; G0378; G0480; J0696; J2405; J2920; J2930; J3475; J7030; J7040